=== PATIENT | female | born 1975 | race Caucasian/White ===

== ENCOUNTER 2017-01-27 14:26 | Emergency (ER) | payer OTHER ==
[~2017-01-27] VITALS: Ht 175.3 cm; Wt 91.1 kg
[2017-01-27] MEDS ORDERED: FLEXERIL10 MG PO (18:25)
[2017-01-27 18:39] VITALS: BP 137/95
== END 2017-01-27 18:41 | disposition home or self-care (01) ==
LOC: EME 14:26
DX: M43.6 Torticollis (principal); F17.200 Nicotine dependence, unspecified, uncomplicated
CPT/HCPCS: 99281; 99283; J1885